=== PATIENT | female | born 1945 | race Caucasian/White ===

== ENCOUNTER 2018-10-16 10:39 | Emergency (ER) | payer MEDICARE ==
[2018-10-16 12:06] LABS: Anion Gap 13 mmol/L (10-20); BUN (Urea Nitrogen) 13 mg/dL (9.8-20.1); Calc. Creatinine Clearance 0 mL/min (70-130); Calcium 9.7 mg/dL (7.8-10.44); Carbon Dioxide 21 mmol/L (23-31); Chloride 107 mmol/L (98-107); Estimated GFR-MDRD 72; Glucose 98 mg/dL (83-110); Potassium 4.1 mmol/L (3.5-5.1); Sodium 137 mmol/L (136-145)
== END 2018-10-16 12:30 | disposition home or self-care (01) ==
LOC: ERS 10:39
DX: R79.89 Other specified abnormal findings of blood chemistry (principal); I10 Essential (primary) hypertension; Z79.899 Other long term (current) drug therapy
CPT/HCPCS: 36416; 80048; 99284

== ENCOUNTER 2019-06-28 11:58 | Outpatient (CLI) | payer MEDICARE ==
--- NOTE | 2019-06-28 12:38 | RAD ---
XR Knee Lt 3 View HISTORY: Left knee pain COMPARISON: None. FINDINGS: There are severe osteoarthritic changes of the knee. There is marked medial compartment nicolette rowing. There is moderate degenerative changes of the patellofemoral joint space. There is no acute bony findings. IMPRESSION: Severe osteoarthritic changes of the knee.
== END 2019-06-28 11:59 | disposition home or self-care (01) ==
LOC: RAD 11:58
PROVIDERS: ATTEND Family Medicine
DX: M17.12 Unilateral primary osteoarthritis, left knee (principal)

== ENCOUNTER 2020-10-02 13:44 | Outpatient (CLI) | payer MEDICARE ==
--- NOTE | 2020-10-02 14:43 | RAD ---
LEFT KNEE 2 VIEWS: HISTORY: Knee pain. Osteoarthritis. FINDINGS: Severe degenerative changes noted. Loss of medial joint space with prominent marginal spurring bilat erally more severe medially. There is chondrocalcinosis seen in both joint spaces. Narrowing and pr ominent spurring at the patellofemoral joint. Prominent spurring from the femoral condyles posterior ly. No joint effusion. IMPRESSION: Moderately severe degenerative changes left knee. POS: [facility]
== END 2020-10-02 13:45 | disposition home or self-care (01) ==
LOC: RAD 13:44
PROVIDERS: ATTEND Family Medicine
DX: M17.12 Unilateral primary osteoarthritis, left knee (principal)

== ENCOUNTER 2021-05-25 13:29 | Outpatient (CLI) | payer MEDICARE | END 2021-05-25 13:30 | disposition home or self-care (01) | LOC: LABBT 13:29 | PROVIDERS: ATTEND Orthopaedic Surgery | DX: Z01.818 Encounter for other preprocedural examination (principal); I51.7 Cardiomegaly; N39.0 Urinary tract infection, site not specified; Z87.440 Personal history of urinary (tract) infections | CPT/HCPCS: 71046; 80048; 85025; 85610; 86850; 86900; 86901; 87081; 87086; 93005; 93010 ==

== ENCOUNTER 2021-05-30 05:33 | Day surgery (SDC) | payer MEDICARE ==
[2021-05-25 15:13] LABS: Anion Gap 13 mmol/L (10-20); BUN (Urea Nitrogen) 7 mg/dL (9.8-20.1); Calc. Creatinine Clearance 0 mL/min (70-130); Calcium 9.9 mg/dL (7.8-10.44); Carbon Dioxide 24 mmol/L (23-31); Chloride 93 mmol/L (98-107); Glucose 136 mg/dL (83-110); Potassium 4.4 mmol/L (3.5-5.1); Sodium 126 mmol/L (136-145)
[2021-05-25 15:27] LABS: #Monocytes 0.4 10x3/uL (0.0-1.1); #Neutrophils 2.5 10x3/uL (1.5-8.4); %Basophils 0.3 % (0.0-2.0); %Eosinophils 0.8 % (0.0-6.0); %Monocytes 9.2 % (0.0-10.0); %Neutrophils 64.4 % (40.0-75.0); Hemoglobin 12.2 g/dL (12.0-15.5); Mean Corpuscular HGB CONC 33.2 g/dL (32.0-36.0); Mean Corpuscular Hemoglobin 30.4 pg (27.0-33.0); Mean Corpuscular Volume 91.5 fl (81.6-98.3); Mean Platelet Volume 8.8 fl (7.4-10.4); Platelet Count 343 10x3/uL (150-450); RBC Distribution Width 13.2 % (11.5-14.5); Red Blood Cell (RBC) Count 4.01 10x6/uL (3.90-5.03); White Blood Cell (WBC) Count 3.9 10x3/uL (3.5-10.5)
[2021-05-25 16:18] LABS: Prothrombin Time 11.5 sec (9.5-12.1)
[2021-05-30] MEDS ORDERED: Fentanyl 100 MCG/2 ML VIAL ONE ×4 (06:10→13:50)
[2021-05-30] MEDS ORDERED: Sodium Chloride 0.9% 100 ML ONE (06:41)
[2021-05-30] MEDS ORDERED: Tranexamic Acid 1,000 MG/10 ML VIAL ONE (06:41)
[2021-05-30] MEDS ORDERED: Vancomycin 1 GM/200 ML BAG ONE (06:41)
[2021-05-30] MEDS ORDERED: ceFAZolin 2 GM/DEX 5% 100 ML BAG ONE (06:41)
[2021-05-30] MEDS ORDERED: Midazolam HCl 2 mg/2 ml Vial ONE (06:52)
[2021-05-30 08:08] LABS: Bacteria/HPF None Seen HPF (None Seen); Bilirubin Negative (Negative); Blood, Urine Negative (Negative); Clarity Clear (Clear); Glucose, Urine (Dipstick) Normal (Negative); Ketone, Urine Negative (Negative); Leukocyte 250 Leu/uL (Negative); Nitrite Negative (Negative); Protein, Urine (Dipstick) Negative (Neg-Trace); RBC/HPF 0-3 HPF (0-3); Specific Gravity, Urine 1.008 (1.002-1.036); Squamous Epithelial 0-3 HPF (0-3); Urobilinogen Normal mg/dL (Less than 2)
[2021-05-30] MEDS ORDERED: Fentanyl 100 MCG/2 ML VIAL SLOW IVP PRN (11:40)
[2021-05-30] MEDS ORDERED: Bupivacaine PF 0.5% 30 ML VIAL ONE (11:44)
[2021-05-30] MEDS ORDERED: Promethazine HCl 25 MG/ML VIAL IM PRN ×3 (11:45→13:57)
[2021-05-30] MEDS ORDERED: Zolpidem Tartrate 5 MG TAB PO PRN ×2 (11:45→12:05)
[2021-05-30] MEDS ORDERED: HYDROcodone/Acetaminophen 10/325 mg Tablet PO PRN ×2 (11:45)
[2021-05-30] MEDS ORDERED: Ondansetron PF 4 MG/2 ML Vial IVP PRN ×2 (11:45→12:05)
[2021-05-30] MEDS ORDERED: Ropivacaine 0.2% 550 ML 550 ML NERVE BLCK SCH (11:45)
[2021-05-30] MEDS ORDERED: traMADol HCl 50 MG TAB PO PRN ×2 (11:45)
[2021-05-30] MEDS ORDERED: Acetaminophen 325 MG TAB PO PRN (12:05)
[2021-05-30] MEDS ORDERED: diphenhydrAMINE 25 MG CAP PO PRN (12:05)
[2021-05-30] MEDS ORDERED: Lidocaine 1% PF 5 ML VIAL ONE (12:10)
[2021-05-30] MEDS ORDERED: Bupivacaine HCl 0.5%/Epinephrine 1:200,000/PF 30 ml Vial ONE (12:10)
[2021-05-30] MEDS ORDERED: Dexamethasone 20 MG/5 ML VIAL ONE (12:10)
[2021-05-30] MEDS ORDERED: PHENYLEPHRINE-NS 100 MCG/ML 10 ML SYRINGE ONE (12:10)
[2021-05-30] MEDS ORDERED: Ondansetron PF 4 MG/2 ML Vial ONE (12:10)
[2021-05-30] MEDS ORDERED: PROPOFOL 200 MG/20 ML VIAL ONE (12:10)
[2021-05-30] MEDS ORDERED: Promethazine HCl 25 MG/ML VIAL IVPB PRN (13:57)
[2021-05-30] MEDS ORDERED: Ondansetron HCl/PF 4 MG/2 ML Vial IVP PRN (13:57)
[2021-05-30] MEDS: ceFAZolin Sodium/D5W 2 GM in Premix Bag 1 BAG IVPB SCH ×2 (16:37→22:25)
[2021-05-30 16:48] VITALS: BMI 24.4
[2021-05-30] MEDS: Sodium Chloride 0.9% 1,000 ML IV SCH ×2 (17:47→22:26)
[2021-05-30] MEDS ORDERED: Sodium Chloride 0.9% 250 ML IV SCH (19:30)
[2021-05-30] MEDS ORDERED: Vancomycin 1 GM in Premix Bag 1 BAG IVPB SCH (20:00)
[2021-05-30] MEDS: Aspirin 81 mg Enteric Coated Tablet PO SCH (20:21)
[2021-05-30] MEDS ORDERED: Loperamide HCl 2 MG CAP PO PRN (21:10)
[2021-05-30] MEDS ORDERED: Loperamide HCl 2 MG CAP PO SCH (21:15)
[2021-05-31 06:21] LABS: Hemoglobin 10.6 g/dL (12.0-16.0); Mean Corpuscular HGB CONC 33.8 g/dL (32.0-36.0); Mean Corpuscular Volume 94.6 fL (78.0-98.0); Mean Platelet Volume 5.9 fL (7.4-10.4); Platelet Count 247 thou/uL (130-400); RBC Distribution Width 12.5 % (11.5-14.5); Red Blood Cell (RBC) Count 3.31 mill/uL (4.20-5.40); White Blood Cell (WBC) Count 4.4 thou/uL (4.8-10.8)
[2021-05-31] MEDS ORDERED: Ferrous Gluconate 324 MG TAB PO SCH (08:00)
[2021-05-31] MEDS: Aspirin 81 mg Enteric Coated Tablet PO SCH (08:19)
[2021-05-31] MEDS: Sodium Chloride 0.9% 1,000 ML IV SCH (08:20)
[2021-05-31] MEDS ORDERED: Multivitamin W/ Minerals 1 TAB PO SCH (09:00)
[2021-05-31] MEDS ORDERED: Senokot S 8.6-50 MG TAB PO SCH (09:00)
[2021-05-31] MEDS ORDERED: CeleCOXIB 100 MG CAP PO SCH (09:00)
[2021-05-31 16:34] VITALS: BP 157/77; TEMP 97.7
[2021-05-31] MEDS ORDERED: FLU VACC QS2021-22(65YR UP)/PF 240 MCG/0.7 ML SYRINGE IM ONE (17:15)
== END 2021-05-31 16:15 | disposition home or self-care (01) ==
LOC: SDC 05:33 → SURG B 15:28 → UNDOADMIN 15:28 → UNDODISIN 05-31 16:15 → SDC 05-31 16:15
PROVIDERS: ATTEND Orthopaedic Surgery
PROC: 0SRD0J9 Replacement of Left Knee Joint with Synthetic Substitute, Cemented, Open Approach (ICD-10-PCS; principal; 2021-05-30)
DX: M17.12 Unilateral primary osteoarthritis, left knee (principal); Z20.822 Contact with and (suspected) exposure to COVID-19; M85.68 Other cyst of bone, other site; M25.762 Osteophyte, left knee; I10 Essential (primary) hypertension; J30.2 Other seasonal allergic rhinitis; E03.9 Hypothyroidism, unspecified; Z87.891 Personal history of nicotine dependence; Z90.710 Acquired absence of both cervix and uterus; Z79.890 Hormone replacement therapy; Z79.82 Long term (current) use of aspirin; Z79.899 Other long term (current) drug therapy; Z88.2 Allergy status to sulfonamides
CPT/HCPCS: 27447; 80048; 81001; 85025; 85027; 85610; 86850; 86900; 86901; 87081; 97110 ×2; 97116; 97139; 97530; A4306; C1713; C1776; 36415; J1100; J2250; J2405; J2704; J2795; J3010; J3370; J3490; J7050; S0020

== ENCOUNTER 2025-05-20 12:27 | Outpatient (CLI) | payer MEDICARE | END 2025-05-20 12:28 | disposition home or self-care (01) | LOC: MRI 12:27 | PROVIDERS: ATTEND Otolaryngology Plastic Surgery within the Head & Neck | DX: R42 Dizziness and giddiness (principal) | CPT/HCPCS: 70553; 76376 ==